=== PATIENT | female | born 1995 | race Two or more races ===

== ENCOUNTER 2018-04-16 10:17 | Emergency (ER) | payer MEDICAID ==
[~2018-04-16] VITALS: Ht 157.5 cm; Wt 46.7 kg
[2018-04-16 10:24] VITALS: Ht 157.5 cm; Wt 46.7 kg
[2018-04-16 12:19] VITALS: BP 111/79
== END 2018-04-16 12:19 | disposition home or self-care (01) ==
LOC: ED 10:17
DX: S92.211A Displaced fracture of cuboid bone of right foot, initial encounter for closed fracture (principal); S92.001A Unspecified fracture of right calcaneus, initial encounter for closed fracture; S93.401A Sprain of unspecified ligament of right ankle, initial encounter; W10.8XXA Fall (on) (from) other stairs and steps, initial encounter; Y93.01 Activity, walking, marching and hiking; Y92.89 Other specified places as the place of occurrence of the external cause; Y99.8 Other external cause status

== ENCOUNTER 2018-05-01 14:20 | Emergency (ER) | payer MEDICAID ==
[~2018-05-01] VITALS: Ht 160 cm; Wt 87.5 kg
[2018-05-01 15:00] VITALS: Ht 160 cm; Wt 87.5 kg
[2018-05-01 16:01] VITALS: BP 97/63
== END 2018-05-01 16:01 | disposition home or self-care (01) ==
LOC: ED 14:20
DX: S92.211D Displaced fracture of cuboid bone of right foot, subsequent encounter for fracture with routine healing (principal); S82.891D Other fracture of right lower leg, subsequent encounter for closed fracture with routine healing; Z02.79 Encounter for issue of other medical certificate; X58.XXXD Exposure to other specified factors, subsequent encounter